=== PATIENT | male | born 1945 | race Caucasian/White ===

== ENCOUNTER → 2017-01-08 | Outpatient (CLI) | payer MEDICARE ==
[2017-01-08 15:00] LABS: HEMOGLOBIN 13.6 gm/dl (14.0-17.5); RED BLOOD COUNT 4.44 M/UL (4.20-5.50); WHITE BLOOD COUNT 7.7 K/UL (4.5-11.0)
[2017-01-08 15:22] LABS: BUN/CREATININE RATIO 25 (0-10)
== END ==
LOC: LAB 13:40
PROVIDERS: Family Medicine; Internal Medicine Nephrology
DX: Z12.5 Encounter for screening for malignant neoplasm of prostate (principal); I12.9 Hypertensive chronic kidney disease with stage 1 through stage 4 chronic kidney disease, or unspecified chronic kidney disease; N18.2 Chronic kidney disease, stage 2 (mild); E11.65 Type 2 diabetes mellitus with hyperglycemia; E78.5 Hyperlipidemia, unspecified; E55.9 Vitamin D deficiency, unspecified
CPT/HCPCS: 36415; 80053; 80061; 82043; 82570; 83036; 84439; 84443; 84681; 85027; G0103

== ENCOUNTER → 2017-05-06 | Outpatient (CLI) | payer MEDICARE ==
[2017-05-06 15:46] LABS: HEMOGLOBIN 13.5 gm/dl (14.0-17.5); RED BLOOD COUNT 4.39 M/UL (4.20-5.50); WHITE BLOOD COUNT 7.8 K/UL (4.5-11.0)
[2017-05-06 16:03] LABS: BUN/CREATININE RATIO 19 (0-10)
== END ==
LOC: LAB 13:34
PROVIDERS: Internal Medicine
DX: E10.65 Type 1 diabetes mellitus with hyperglycemia (principal); Z94.1 Heart transplant status
CPT/HCPCS: 80053; 85027

== ENCOUNTER → 2021-01-26 | Outpatient (CLI) | payer MEDICARE ==
[~2021-01-26] MED LIST: PREDNISONE20 MG PO
== END ==
LOC: EXRD 10:40
DX: R06.02 Shortness of breath (principal)
CPT/HCPCS: 71046

== ENCOUNTER 2021-08-17 09:49 | Emergency (ER) | payer MEDICARE ==
[2021-08-17 11:22] LABS: HEMOGLOBIN 10.1 gm/dl (14.0-17.5); RED BLOOD COUNT 3.49 M/UL (4.20-5.50); WHITE BLOOD COUNT 8.8 K/UL (4.5-11.0)
== END 2021-08-17 18:04 | disposition short-term general hospital (02) ==
LOC: ER1 09:49
PROVIDERS: Student in an Organized Health Care Education/Training Program
DX: K92.1 Melena (principal); Z20.822 Contact with and (suspected) exposure to COVID-19
CPT/HCPCS: 80048; 82270; 85025; 85610; 86850; 86900; 86901; 96374; 99284; C9113; U0002

== ENCOUNTER → 2021-10-10 | Outpatient (CLI) | payer MEDICARE ==
[2021-10-10 12:33] LABS: RED BLOOD COUNT 3.34 M/UL (4.20-5.50); WHITE BLOOD COUNT 7.6 K/UL (4.5-11.0)
[2021-10-11 08:15] LABS: TSH 1.78 uIU/mL (0.450-4.500)
[2021-10-11 09:15] LABS: A/G RATIO 1.4 (1.2-2.2); BILIRUBIN, TOTAL 0.2 mg/dL (0.0-1.2); CALCIUM, SERUM 8.8 mg/dL (8.6-10.2); CREATININE, SERUM 1.28 mg/dL (0.76-1.27); GLOBULIN, TOTAL 2.8 g/dL (1.5-4.5); MAGNESIUM 1.9 mg/dL (1.6-2.3); POTASSIUM, SERUM 4.4 mmol/L (3.5-5.2); PROTEIN, TOTAL, SERUM 6.7 g/dL (6.0-8.5)
[2021-10-11 11:15] LABS: CREATININE, URINE 34.3 mg/dL (Not Estab.)
== END ==
LOC: LAB 11:14
PROVIDERS: Internal Medicine Nephrology; Nurse Practitioner Family
DX: E11.22 Type 2 diabetes mellitus with diabetic chronic kidney disease (principal); I12.9 Hypertensive chronic kidney disease with stage 1 through stage 4 chronic kidney disease, or unspecified chronic kidney disease; N18.2 Chronic kidney disease, stage 2 (mild); R09.02 Hypoxemia; Z99.81 Dependence on supplemental oxygen; E55.9 Vitamin D deficiency, unspecified
CPT/HCPCS: 36415; 80053; 80061; 82043; 82570; 83735; 84100; 84439; 84443; 85025; 85027

== ENCOUNTER → 2021-10-30 | Outpatient (CLI) | payer MEDICARE | LOC: RAD 16:16 | DX: M79.671 Pain in right foot (principal); M79.89 Other specified soft tissue disorders | CPT/HCPCS: 73630 ==